=== PATIENT | male | born 1990 | race Caucasian/White ===

== ENCOUNTER 2020-04-15 21:33 | Emergency (ER) | payer OTHER ==
[~2020-04-15] VITALS: Ht 167.6 cm; Wt 88.0 kg
[2020-04-15 21:45] VITALS: Ht 167.6 cm; Wt 88.0 kg
[2020-04-15 23:47] VITALS: BP 129/78
== END 2020-04-15 23:47 | disposition home or self-care (01) ==
LOC: ED 21:33
DX: J03.90 Acute tonsillitis, unspecified (principal)